=== PATIENT | male | born 1990 | race African-American/Black ===

== ENCOUNTER 2016-05-26 12:17 | Emergency (ER) | payer SELFPAY ==
[2016-05-26] MEDS ORDERED: IBUPROFEN 800 MG TABLET PO ONE (12:27)
--- NOTE | 2016-05-26 12:27 | ER Document Report ---
ED Medical Screen (RME) - General Stated Complaint: COUGH,CONGESTION, BACK PAIN Mode of Arrival: Ambulatory Information source: Patient Notes: Patient reports chest and back pain for the past week. Patient reports difficulty breathing. Patient reports mild cough. hx: None I have greeted and performed a rapid initial assessment of this patient. A comprehensive ED assessment and evaluation of the patient, analysis of test results and completion of the medical decision making process will be conducted by additional ED providers. - Related Data Allergies/Adverse Reactions: No Known Allergies Allergy (Unverified 05/26/16 12:26) Physical Exam - Respiratory Respiratory status: Other - Shallow respirations Chest status: Pain on movement, Pain with deep breathing Breath sounds: Other - Diminished breath sounds bilaterally
[2016-05-26 14:08] VITALS: BP 120/79
--- NOTE | 2016-05-26 14:10 | ER Document Report ---
HPI - HPI Patient complains to provider of: chest and back pain Pain Level: 4 Context: Patient is a 26 year old male p/w chest wall pain and back pain x2 weeks. Patient denies any injury, trauma. States that he only hurts wit movement. Denies associated SOB, dyspnea, wheezing, cough, fevers, palpitations, or relief with leaning forward. Intermittent nasla drainage, did ot receive a flu shot. Patient works at a [employer] with a lot of heavy lifting. taking APAP at home with minimal relief. denies PMH no PCP no allergies - DERM Skin Color: Normal Past Medical History - General Information source: Patient - Social History Smoking Status: Never Smoker Chew tobacco use (# tins/day): No Frequency of alcohol use: None Drug Abuse: None Family History: Reviewed & Not Pertinent Patient has suicidal ideation: No Patient has homicidal ideation: No Renal/ Medical History: Denies: Hx Peritoneal Dialysis Vertical Provider Document - CONSTITUTIONAL Agree With Documented VS: Yes Exam Limitations: No Limitations General Appearance: WD/WN, Mild Distress - INFECTION CONTROL TRAVEL OUTSIDE OF THE [place] IN LAST 30 DAYS: No - HEENT HEENT: Atraumatic, Normocephalic, PERRLA. negative: Pharyngeal Exudate, Pharyngeal Tenderness, Pharyngeal Erythema, Tympanic Membrane Red, Tympanic Membrane Bulging - NECK Neck: Normal Inspection. negative: Lymphadenopathy-Left, Lymphadenopathy-Right - RESPIRATORY Respiratory: Breath Sounds Normal, No Respiratory Distress, Other - Chest pain reproducible to palpation along bilateral rib spaces in the intercoastal areas.. negative: Rales, Rhonchi, Wheezing O2 Sat by Pulse Oximetry: 98 - CARDIOVASCULAR Cardiovascular: Regular Rate, Regular Rhythm, No Murmur. negative: Tachycardia Pulses: Normal: Radial Notes: No evidence of friction rub on auscultation - BACK Back: Normal Inspection Notes: pain to palpation of b/l trapezius, no tender to palpation of cervical or thoracic spinous processes. ABle to walk without difficulty - MUSCULOSKELETAL/EXTREMETIES Musculoskeletal/Extremeties: MAEW, FROM, Non-Tender, No Edema. negative: Eccymosis - NEURO Level of Consciousness: Awake, Alert, Appropriate Motor/Sensory: No Motor Deficit, No Sensory Deficit - DERM Integumentary: Warm, Dry, No Rash Course - Re-evaluation Re-evalutation: 05/26/16 15:04 Patient is a 26 year old male with h/o and PE revealing of muscle strain. patient works in a position requiring a lot of heavy lifitg. low index fopr suspicion of PTX given length of complaint and no evidence in CXR, Low index for suspicion of pericarditis or PE given patient pain reproducible on exam, VS stable, lack of physical exam findings. Will d/c patient home and [facility]. - Vital Signs Vital signs: Temp Pulse Resp BP Pulse Ox 98.2 F 86 20 128/64 H 98 05/26/16 12:25 05/26/16 12:25 05/26/16 12:25 05/26/16 12:25 05/26/16 12:25 - Laboratory Laboratory results interpreted by me: 05/26/16 15:05 Influenza negative - Diagnostic Test Radiology reviewed: Image reviewed, Reports reviewed Discharge - Discharge Clinical Impression: Muscle strain of chest wall Qualifiers: Encounter type: initial encounter Qualified Code(s): S29.011A - Strain of muscle and tendon of front wall of thorax, initial encounter Strain of trapezius muscle Qualifiers: Encounter type: initial encounter Laterality: unspecified laterality Qualified Code(s): S46.819A - Strain of other muscles, fascia and tendons at shoulder and upper arm level, unspecified arm, initial encounter Condition: Good Disposition: HOME, SELF-CARE Instructions: Muscle Strain ([facility]), Exercise Program for the Shoulder ([facility]), Chest Wall Pain ([facility]) Prescriptions: Meloxicam [Mobic 15 mg Tablet] 15 mg PO DAILY #30 tablet Forms: Parent Work Note, Return to Work [facility] [NO [facility]AL MD] - Follow up as needed
== END 2016-05-26 15:13 | disposition home or self-care (01) ==
LOC: ER 12:17
DX: S29.011A Strain of muscle and tendon of front wall of thorax, initial encounter (principal); S46.819A Strain of other muscles, fascia and tendons at shoulder and upper arm level, unspecified arm, initial encounter; R07.9 Chest pain, unspecified; M54.9 Dorsalgia, unspecified; X58.XXXA Exposure to other specified factors, initial encounter
CPT/HCPCS: 71020; 87804; 99283

== ENCOUNTER 2016-06-04 10:57 | Emergency (ER) | payer SELFPAY ==
--- NOTE | 2016-06-04 11:25 | ER Document Report ---
ED Medical Screen (RME) - General Stated Complaint: BODYACHES Notes: 26 yo male c/o flu like symptoms since yesterday. bodyaches and fever and cough. no flu shot TRAVEL OUTSIDE OF THE [place] IN LAST 30 DAYS: No - Related Data Allergies/Adverse Reactions: No Known Allergies Allergy (Verified 06/04/16 11:23) Past Medical History Renal/ Medical History: Denies: Hx Peritoneal Dialysis Physical Exam - Vital signs Vitals: Temp Pulse Resp BP Pulse Ox 99.3 F 71 14 132/66 H 97 06/04/16 11:00 06/04/16 11:00 06/04/16 11:00 06/04/16 11:00 06/04/16 11:00 Course - Vital Signs Vital signs: Temp Pulse Resp BP Pulse Ox 99.3 F 71 14 132/66 H 97 06/04/16 11:00 06/04/16 11:00 06/04/16 11:00 06/04/16 11:00 06/04/16 11:00
[2016-06-04] MEDS ORDERED: IBUPROFEN 800 MG TABLET PO ONE (12:39)
[2016-06-04] MEDS ORDERED: ONDANSETRON ODT 4 MG TAB (6 TAB/DSPK) PO PRN (12:39)
--- NOTE | 2016-06-04 12:40 | ER Document Report ---
HPI - HPI Patient complains to provider of: flu like symptoms Onset: Yesterday Quality of pain: Achy Severity: Moderate Pain Level: 4 Associated Symptoms: Body/muscle aches, Nonproductive cough, Nausea Exacerbated by: Denies Relieved by: Denies Similar symptoms previously: No Recently seen / treated by doctor: No - DERM Skin Color: Normal Past Medical History - General Information source: Patient - Social History Smoking Status: Current Some Day Smoker Cigarette use (# per day): Yes - occ Chew tobacco use (# tins/day): No Frequency of alcohol use: Occasional Drug Abuse: None Occupation: recycling Lives with: Family Family History: Reviewed & Not Pertinent Patient has suicidal ideation: No Patient has homicidal ideation: No - Medical History Medical History: Negative Renal/ Medical History: Denies: Hx Peritoneal Dialysis Surgical Hx: Negative - Immunizations Hx Diphtheria, Pertussis, Tetanus Vaccination: Yes Vertical Provider Document - CONSTITUTIONAL Agree With Documented VS: Yes Exam Limitations: No Limitations General Appearance: WD/WN, No Apparent Distress - INFECTION CONTROL TRAVEL OUTSIDE OF THE [place] IN LAST 30 DAYS: No - HEENT HEENT: Atraumatic, Normal ENT Exam, Normocephalic. negative: Conjuctival Injection, Pharyngeal Erythema, Tympanic Membrane Red - NECK Neck: Normal Inspection, Supple. negative: Lymphadenopathy-Left, Lymphadenopathy-Right - RESPIRATORY Respiratory: Breath Sounds Normal, No Respiratory Distress O2 Sat by Pulse Oximetry: 97 - GI/ABDOMEN Gastrointestinal: Abdomen Soft, Abdomen Non-Tender - BACK Back: Normal Inspection - MUSCULOSKELETAL/EXTREMETIES Musculoskeletal/Extremeties: MAEW, FROM - NEURO Level of Consciousness: Awake, Alert, Appropriate Motor/Sensory: No Motor Deficit - DERM Integumentary: Warm, Dry, No Rash Course - Re-evaluation Re-evalutation: 06/04/16 12:42 Patient instructed on flu symptoms. Patient instructed on good handwashing ibuprofen and antinausea medicine. Importance of fluids. Patient was also instructed to return emergency department for any trouble breathing concerns. - Vital Signs Vital signs: Temp Pulse Resp BP Pulse Ox 99.3 F 71 14 132/66 H 97 06/04/16 11:00 06/04/16 11:00 06/04/16 11:00 06/04/16 11:00 06/04/16 11:00 Discharge - Discharge Clinical Impression: Flu-like symptoms, elevated blood pressure Condition: Stable Disposition: HOME, SELF-CARE Instructions: Influenza ([facility]), Use of Pnhb-Ayr-Whzficp Ibuprofen ([facility]), Antinausea Medication ([facility]) Additional Instructions: *You have been evaluated for flu like symptoms today, cough *Increase fluid intake as discussed *Take medication as prescribed *Monitor your temperature, take Tylenol or motrin as indicated *Follow up with a primary care provider within one week for recheck *Good handwashing *Monitor your blood pressure. Your blood pressure was elevated today. This may be because you were anxious, in pain or because you need medication. It is important to follow up with your primary care provider for full evaluation. *Return to ED for worsening condition, changes, needs Forms: Return to Work, Elevated Blood Pressure
[2016-06-04 13:01] VITALS: BP 134/69
== END 2016-06-04 13:00 | disposition home or self-care (01) ==
LOC: ER 10:57
DX: M79.1 Myalgia (principal); R05 Cough; R11.0 Nausea; F17.210 Nicotine dependence, cigarettes, uncomplicated; R03.0 Elevated blood-pressure reading, without diagnosis of hypertension
CPT/HCPCS: 99283

== ENCOUNTER 2016-06-16 18:29 | Emergency (ER) | payer SELFPAY ==
[2016-06-16] MEDS ORDERED: ONDANSETRON 4 MG TAB.RAPDIS SL ONE (19:01)
[2016-06-16] MEDS ORDERED: KETOROLAC TROMETHAMINE 60 MG/2 ML SDV IM ONE (19:01)
[2016-06-16] MEDS ORDERED: BENZONATATE 100 MG CAPSULE PO ONE (19:01)
--- NOTE | 2016-06-16 19:04 | ER Document Report ---
ED Flu Like - General Chief Complaint: Fever Stated Complaint: FEVER/BODY ACHES Time seen by provider: 19:02 Mode of Arrival: Ambulatory Information source: Patient TRAVEL OUTSIDE OF THE [place] IN LAST 30 DAYS: No - HPI Patient complains to provider of: fever, body aches, headache, nausea, vomiting , diarrhea Onset: Last week Timing/Duration: Persistent Quality of pain: Achy Severity: Moderate Pain Level: 3 Associated symptoms: Body/muscle aches, Chills, Productive cough, Diarrhea, Fever, Nausea, Vomiting Similar symptoms previously: Yes Recently seen / treated by doctor: No Notes: Patient is a 26-year-old male with medical history presents to the emergency room with flulike symptoms including cough, cold, congestion, cough is productive of yellow phlegm, fever, body aches, headache, nausea, vomiting, diarrhea, symptoms have been persistent for the past 2 weeks approximately, patient did not receive a flu vaccination this season - Related Data Allergies/Adverse Reactions: No Known Allergies Allergy (Verified 06/16/16 19:01) Past Medical History - General Information source: Patient - Social History Smoking Status: Current Every Day Smoker Family History: Reviewed & Not Pertinent Renal/ Medical History: Denies: Hx Peritoneal Dialysis - Immunizations Hx Diphtheria, Pertussis, Tetanus Vaccination: Yes Review of Systems - Review of Systems Constitutional: See HPI EENT: See HPI Cardiovascular: No symptoms reported Respiratory: See HPI Gastrointestinal: See HPI Genitourinary: No symptoms reported Male Genitourinary: No symptoms reported Musculoskeletal: See HPI Skin: No symptoms reported Hematologic/Lymphatic: No symptoms reported Neurological/Psychological: See HPI -: Yes All other systems reviewed and negative Physical Exam - Vital signs Vitals: Temp Pulse Resp BP Pulse Ox 98.2 F 75 16 137/65 H 98 06/16/16 19:00 06/16/16 19:00 06/16/16 19:00 06/16/16 19:00 06/16/16 19:00 Interpretation: Normal - General General appearance: Appears well, Alert - HEENT Head: Normocephalic, Atraumatic Eyes: Normal Pupils: PERRL Nasal: Clear rhinorrhea Mouth/Lips: Normal Pharynx: Erythema. No: Exudate Neck: Normal - Respiratory Respiratory status: No respiratory distress Chest status: Nontender Breath sounds: Normal Chest palpation: Normal - Cardiovascular Rhythm: Regular Heart sounds: Normal auscultation Murmur: No - Abdominal Inspection: Normal Distension: No distension Bowel sounds: Normal Tenderness: Nontender Organomegaly: No organomegaly - Back Back: Normal, Nontender - Extremities General upper extremity: Normal inspection, Nontender, Normal color, Normal ROM , Normal temperature General lower extremity: Normal inspection, Nontender, Normal color, Normal ROM , Normal temperature, Normal weight bearing. No: Greg's sign - Neurological Neuro grossly intact: Yes Cognition: Normal Orientation: AAOx4 [place] Coma Scale Eye Opening: Spontaneous [place] Coma Scale Verbal: Oriented Bernard Coma Scale Motor: Obeys Commands Bernard Coma Scale Total: 15 Speech: Normal Motor strength normal: LUE, RUE, LLE, RLE Sensory: Normal - Psychological Associated symptoms: Normal affect, Normal mood - Skin Skin Temperature: Warm Skin Moisture: Dry Skin Color: Normal Course - Re-evaluation Re-evalutation: 06/16/16 19:50 Lab and imaging findings were discussed with patient at bedside which are consistent with pneumonia, patient will be started on antibiotics and advised to follow-up with a primary care provider in 2-3 days or return if symptoms worsen, patient acknowledges understanding and agreement with this plan - Vital Signs Vital signs: Temp Pulse Resp BP Pulse Ox 98.2 F 75 16 137/65 H 98 06/16/16 19:00 06/16/16 19:00 06/16/16 19:00 06/16/16 19:00 06/16/16 19:00 - Diagnostic Test Radiology reviewed: Image reviewed, Reports reviewed Discharge - Discharge Clinical Impression: Pneumonia Qualifiers: Pneumonia type: due to unspecified organism Laterality: right Lung location: lower lobe of lung Qualified Code(s): J18.1 - Lobar pneumonia, unspecified organism Condition: Stable Disposition: HOME, SELF-CARE Instructions: Acetaminophen, Fever ([facility]), Pneumonia ([facility]), Ibuprofen (General) ([facility]) Additional Instructions: Follow up with your primary care provider in one to 2 days. Return to the emergency room immediately if symptoms worsen or any additional concerns. Prescriptions: Azithromycin [Zithromax 250 mg Tablet] 250 mg PO ASDIR PRN #4 tablet PRN Reason: Forms: Smoking Cessation Education, Return to Work
[2016-06-16 19:07] VITALS: BP 137/65
[2016-06-16] MEDS ORDERED: AZITHROMYCIN 250 MG TABLET PO ONE (19:50)
[2016-06-16] MEDS ORDERED: ONDANSETRON ODT 4 MG TAB (6 TAB/DSPK) PO PRN (19:52)
[2016-06-16] MEDS ORDERED: HYDROCODONE/ACETAMINOPHEN 5-325 MG 6 TAB/DSPK PO PRN (19:52)
== END 2016-06-16 20:00 | disposition home or self-care (01) ==
LOC: ER 18:29
DX: J18.1 Lobar pneumonia, unspecified organism (principal); R50.9 Fever, unspecified; R52 Pain, unspecified; R51 Headache; R11.2 Nausea with vomiting, unspecified; R19.7 Diarrhea, unspecified; F17.210 Nicotine dependence, cigarettes, uncomplicated
CPT/HCPCS: 99283; 96372; 87070; 87880; 87077; 87804; 71020; J1885; S0119

== ENCOUNTER 2016-11-21 11:36 | Emergency (ER) | payer SELFPAY ==
[2016-11-21 11:42] VITALS: BP 125/72
[2016-11-21] MEDS ORDERED: DEXAMETHASONE 4 MG TABLET PO ONE (12:09)
[2016-11-21] MEDS ORDERED: IBUPROFEN 800 MG TABLET PO ONE (12:09)
[2016-11-21] MEDS ORDERED: LIDOCAINE 2% VISCOUS SOLN 20 ML UDCUP PO ONE (12:10)
[2016-11-21] MEDS ORDERED: PENICILLIN G BENZATHINE 1.2 MILLION UNIT/2 ML DISP.SYRIN IM ONE (12:10)
--- NOTE | 2016-11-21 12:12 | ER Document Report ---
HPI - HPI Patient complains to provider of: sore throat Onset: Other - 2 days Onset/Duration: Persistent Quality of pain: Achy Pain Level: 3 Context: Presents complaining of sore throat, fever for the past 2 days. Patient does report recent sick household contacts Associated Symptoms: Body/muscle aches, Fever, Sore throat. denies: Nonproductive cough, Productive cough Exacerbated by: Denies Relieved by: Denies Similar symptoms previously: Yes Recently seen / treated by doctor: No - ROS ROS below otherwise negative: Yes Systems Reviewed and Negative: Yes All other systems reviewed and negative - CONSTITUTIONAL Constitutional: REPORTS: Fever, Chills - EENT EENT: REPORTS: Sore Throat - RESPIRATORY Respiratory: DENIES: Coughing - GASTROINTESTINAL Gastrointestinal: DENIES: Nausea, Patient vomiting - MUSCULOSKELETAL Notes: bodyaches - DERM Skin Color: Normal Skin Problems: None Past Medical History - General Information source: Patient - Social History Smoking Status: Never Smoker Frequency of alcohol use: None Drug Abuse: None Occupation: none Lives with: Spouse/Significant other Family History: Reviewed & Not Pertinent - Medical History Medical History: Negative Renal/ Medical History: Denies: Hx Peritoneal Dialysis Surgical Hx: Negative - Immunizations Hx Diphtheria, Pertussis, Tetanus Vaccination: Yes Vertical Provider Document - CONSTITUTIONAL Agree With Documented VS: Yes Exam Limitations: No Limitations General Appearance: WD/WN, No Apparent Distress - INFECTION CONTROL TRAVEL OUTSIDE OF THE [place] IN LAST 30 DAYS: No - HEENT HEENT: Atraumatic, Normocephalic, Pharyngeal Exudate, Pharyngeal Tenderness, Pharyngeal Erythema - NECK Neck: Lymphadenopathy-Left, Lymphadenopathy-Right - RESPIRATORY Respiratory: Breath Sounds Normal, No Respiratory Distress, Chest Non-Tender O2 Sat by Pulse Oximetry: 98 - CARDIOVASCULAR Cardiovascular: Regular Rate, Regular Rhythm, No Murmur - MUSCULOSKELETAL/EXTREMETIES Musculoskeletal/Extremeties: MAEW - NEURO Level of Consciousness: Awake, Alert, Appropriate Motor/Sensory: No Motor Deficit - DERM Integumentary: Warm, Dry, No Rash Course - Vital Signs Vital signs: Temp Pulse Resp BP Pulse Ox 99.1 F 94 16 125/72 98 11/21/16 11:41 11/21/16 11:41 11/21/16 11:41 11/21/16 11:41 11/21/16 11:41 Discharge - Discharge Clinical Impression: Tonsillitis Condition: Stable Disposition: HOME, SELF-CARE Instructions: Sore Throat ([facility]), Tonsillitis ([facility]), Use of Fmdk-Xgy-Xidlmic Ibuprofen ([facility]), Corticosteroid Medication ([facility]) Additional Instructions: Return immediately for any new or worsening symptoms Followup with your primary care provider, call tomorrow to make a followup appointment Prescriptions: Naproxen [Naprosyn 250 Nmg Tablet] 1 tab PO BID #14 tablet Referrals: [facility] [Provider Group] - Follow up as needed
== END 2016-11-21 13:01 | disposition home or self-care (01) ==
LOC: ER 11:36
DX: J03.90 Acute tonsillitis, unspecified (principal); R50.9 Fever, unspecified; M79.1 Myalgia; R59.0 Localized enlarged lymph nodes
CPT/HCPCS: 99283; 96372; 87880; J3490; J0561

== ENCOUNTER 2017-01-15 11:32 | Emergency (ER) | payer SELFPAY ==
--- NOTE | 2017-01-15 12:03 | ER Document Report ---
ED Medical Screen (RME) - General Chief Complaint: Abdominal Pain Stated Complaint: ABDOMINAL PAIN Time Seen by Provider: 01/15/17 12:02 Notes: pt with two days of LLQ abdominal pain/nausea/diarrhea. TRAVEL OUTSIDE OF THE [place] IN LAST 30 DAYS: No - Related Data Allergies/Adverse Reactions: No Known Allergies Allergy (Verified 01/15/17 11:36) Past Medical History - Social History Chew tobacco use (# tins/day): No Frequency of alcohol use: Occasional Drug Abuse: None Renal/ Medical History: Denies: Hx Peritoneal Dialysis Surgical Hx: Negative - Immunizations Hx Diphtheria, Pertussis, Tetanus Vaccination: No Physical Exam - Vital signs Vitals: Temp Pulse Resp BP Pulse Ox 98.6 F 89 16 127/79 H 99 01/15/17 11:37 01/15/17 11:37 01/15/17 11:37 01/15/17 11:37 01/15/17 11:37 Course - Vital Signs Vital signs: Temp Pulse Resp BP Pulse Ox 98.6 F 89 16 127/79 H 99 01/15/17 11:37 01/15/17 11:37 01/15/17 11:37 01/15/17 11:37 01/15/17 11:37
[2017-01-15 12:33] LABS: ABSOLUTE EOSINOPHILS # (AUTO) 0.1 10^3/uL (0.0-0.6); ABSOLUTE LYMPHOCYTES (AUTO) 1.9 10^3/uL (0.5-4.7); ABSOLUTE MONOCYTES (AUTO) 0.5 10^3/uL (0.1-1.4); ABSOLUTE NEUT (AUTO) 2.7 10^3/uL (1.7-8.2); BASOPHILS % (AUTO) 0.7 % (0-2); EOSINOPHILS % (AUTO) 1.2 % (0-6); HEMATOCRIT 42.2 % (37.9-51.0); HEMOGLOBIN 14.5 g/dL (13.5-17.0); HGB HCT DIFFERENCE 1.3; LYMPHOCYTES % (AUTO) 35.6 % (13-45); MEAN CORPUSCULAR HEMOGLOBIN 31.7 pg (27.0-33.4); MEAN CORPUSCULAR HGB CONC 34.3 g/dL (32.0-36.0); MEAN CORPUSCULAR VOLUME 93 fl (80-97); RED BLOOD COUNT 4.57 10^6/uL (4.35-5.55); RED CELL DISTRIBUTION WIDTH 13.7 % (11.5-14.0); SEGMENTED NEUTROPHILS % (AUTO) 52.5 % (42-78); WHITE BLOOD COUNT 5.2 10^3/uL (4.0-10.5)
[2017-01-15 12:38] LABS: APPEARANCE,URINE CLEAR; BILIRUBIN,URINE NEGATIVE (NEGATIVE); GLUCOSE, URINE NEGATIVE (NEGATIVE); KETONES,URINE NEGATIVE (NEGATIVE); LEUKOCYTE ESTERASE,URINE NEGATIVE (NEGATIVE); NITRITE,URINE NEGATIVE (NEGATIVE); PROTEIN,URINE NEGATIVE (NEGATIVE); URINE SPECIFIC GRAVITY 1.003; UROBILINOGEN,URINE NEGATIVE mg/dL (<2.0)
[2017-01-15] MEDS ORDERED: ONDANSETRON 4 MG TAB.RAPDIS SL ONE (12:51)
--- NOTE | 2017-01-15 12:54 | ER Document Report ---
ED GI/ - General Chief Complaint: Abdominal Pain Stated Complaint: ABDOMINAL PAIN Time Seen by Provider: 01/15/17 12:02 Mode of Arrival: Ambulatory Information source: Patient TRAVEL OUTSIDE OF THE [place] IN LAST 30 DAYS: No - HPI Patient complains to provider of: Abdominal pain, Diarrhea, Vomiting Onset: Yesterday Timing/Duration: Persistent Quality of pain: Achy, Cramping Severity at maximum: Moderate Severity in ED: Moderate Pain Level: 3 Location: LLQ Associated symptoms: Diarrhea, Nausea, Vomiting Exacerbated by: Denies Relieved by: Denies Similar symptoms previously: No Recently seen / treated by doctor: No Notes: 01/15/17 12:52 Patient is a 26-year-old healthy male who presents to the emergency room today complaining of crampy lower abdominal pain with nausea vomiting and diarrhea, states he started with diarrhea yesterday thinking that he had a stomach bug, today he ate a dum[employer] egg and cheese sandwich at [employer] symptoms started shortly thereafter, he had 2 episodes of vomiting with crampy pain in the left lower quadrant of his abdomen, denies any blood in his vomit or stools, no fevers, no urinary symptoms, no history of similar symptoms previously, no sick contacts - Related Data Allergies/Adverse Reactions: No Known Allergies Allergy (Verified 01/15/17 11:36) Past Medical History - General Information source: Patient - Social History Smoking Status: Former Smoker Chew tobacco use (# tins/day): No Frequency of alcohol use: Occasional Drug Abuse: Marijuana Family History: Reviewed & Not Pertinent Renal/ Medical History: Denies: Hx Peritoneal Dialysis Surgical Hx: Negative - Immunizations Hx Diphtheria, Pertussis, Tetanus Vaccination: No Review of Systems - Review of Systems Constitutional: No symptoms reported EENT: No symptoms reported Cardiovascular: No symptoms reported Respiratory: No symptoms reported Gastrointestinal: See HPI Genitourinary: No symptoms reported Male Genitourinary: No symptoms reported Musculoskeletal: No symptoms reported Skin: No symptoms reported Hematologic/Lymphatic: No symptoms reported Neurological/Psychological: No symptoms reported -: Yes All other systems reviewed and negative Physical Exam - Vital signs Vitals: Temp Pulse Resp BP Pulse Ox 98.6 F 89 16 127/79 H 99 01/15/17 11:37 01/15/17 11:37 01/15/17 11:37 01/15/17 11:37 01/15/17 11:37 Interpretation: Normal - General General appearance: Appears well, Alert - HEENT Head: Normocephalic, Atraumatic Eyes: Normal Pupils: PERRL - Respiratory Respiratory status: No respiratory distress Chest status: Nontender Breath sounds: Normal Chest palpation: Normal - Cardiovascular Rhythm: Regular Heart sounds: Normal auscultation Murmur: No - Abdominal Inspection: Normal Distension: No distension Bowel sounds: Normal Tenderness: Tender - Mild left lower quadrant tenderness Organomegaly: No organomegaly - Back Back: Normal, Nontender - Extremities General upper extremity: Normal inspection, Nontender, Normal color, Normal ROM , Normal temperature General lower extremity: Normal inspection, Nontender, Normal color, Normal ROM , Normal temperature, Normal weight bearing. No: Greg's sign - Neurological Neuro grossly intact: Yes Cognition: Normal Orientation: AAOx4 [place] Coma Scale Eye Opening: Spontaneous [place] Coma Scale Verbal: Oriented [place] Coma Scale Motor: Obeys Commands [place] Coma Scale Total: 15 Speech: Normal Motor strength normal: LUE, RUE, LLE, RLE Sensory: Normal - Psychological Associated symptoms: Normal affect, Normal mood - Skin Skin Temperature: Warm Skin Moisture: Dry Skin Color: Normal Course - Re-evaluation Re-evalutation: 01/15/17 13:42 Patient resting comfortably on stretcher, no vomiting while in the emergency room, reports feeling much better, tolerating p.o. intake, labs are unremarkable and were discussed with patient at bedside, symptoms likely related to viral gastroenteritis, he will be discharged with prescription for antiemetics and instructed to follow-up or return if symptoms worsen, patient acknowledges understanding and agreement with this plan - Vital Signs Vital signs: Temp Pulse Resp BP Pulse Ox 98.6 F 89 16 127/79 H 99 01/15/17 11:37 01/15/17 11:37 01/15/17 11:37 01/15/17 11:37 01/15/17 11:37 - Laboratory Result Diagrams: 01/15/17 12:20 01/15/17 12:20 Laboratory results interpreted by me: 01/15/17 12:20 Urine Blood SMALL H Discharge - Discharge Clinical Impression: Vomiting and diarrhea Condition: Stable Disposition: HOME, SELF-CARE Instructions: Abdominal Pain ([facility]), Nausea or Vomiting, Nonspecific ([facility]), Diarrhea, Nonspecific ([facility]) Additional Instructions: Follow up with your primary care provider in one to 2 days. Return to the emergency room immediately if symptoms worsen or any additional concerns. Prescriptions: Ondansetron [Zofran Odt 4 mg Tablet] 1 - 2 tab PO Q4H #10 tab.rapdis Forms: Return to Work
[2017-01-15 12:57] LABS: ALANINE AMINOTRANSFERASE 27 U/L (21-72); ALBUMIN 4.4 g/dL (3.5-5.0); ALKALINE PHOSPHATASE 108 U/L (38-126); ANION GAP 10 (5-19); ASPARTATE AMINO TRANSFERASE 23 U/L (17-59); BILIRUBIN,DIRECT 0.3 mg/dL (0.0-0.4); BILIRUBIN,TOTAL 0.4 mg/dL (0.2-1.3); BLOOD UREA NITROGEN 10 mg/dL (7-20); CALCIUM 9.8 mg/dL (8.4-10.2); CARBON DIOXIDE 28 mmol/L (22-30); CHLORIDE 104 mmol/L (98-107); CREATININE RESULT 0.92 mg/dL (0.52-1.25); GLUCOSE 82 mg/dL (75-110); POTASSIUM 4.4 mmol/L (3.6-5.0); SODIUM 141.6 mmol/L (137-145); TOTAL PROTEIN 7.6 g/dL (6.3-8.2)
[2017-01-15 14:15] VITALS: BP 123/76
== END 2017-01-15 14:15 | disposition home or self-care (01) ==
LOC: ER 11:32
DX: R10.9 Unspecified abdominal pain (principal); R19.7 Diarrhea, unspecified; R11.10 Vomiting, unspecified; R10.30 Lower abdominal pain, unspecified
CPT/HCPCS: 99284; 36415; 85025; 80053; 81001; S0119

== ENCOUNTER 2017-09-18 16:50 | Emergency (ER) | payer OTHER ==
[2017-09-18 16:57] VITALS: BP 136/83
[2017-09-18] MEDS ORDERED: OXYCODONE HCL IR 5 MG TABLET PO ONE (17:09)
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
[2017-09-18] MEDS ORDERED: IBUPROFEN 800 MG TABLET PO ONE (18:35)
[2017-09-18] MEDS ORDERED: LIDOCAINE 5% (700 MG) TRANSDERMAL ADH..PATCH TP ONE (18:35)
== END 2017-09-18 18:48 | disposition home or self-care (01) ==
LOC: ER 16:50
DX: S16.1XXA Strain of muscle, fascia and tendon at neck level, initial encounter (principal); S39.012A Strain of muscle, fascia and tendon of lower back, initial encounter; M54.2 Cervicalgia; V87.7XXA Person injured in collision between other specified motor vehicles (traffic), initial encounter; F17.200 Nicotine dependence, unspecified, uncomplicated
CPT/HCPCS: 72110; 72125; 99284

== ENCOUNTER 2018-05-03 15:10 | Emergency (ER) | payer OTHER ==
[2018-05-03] MEDS ORDERED: ONDANSETRON 4 MG TAB.RAPDIS PO ONE (16:40)
--- NOTE | 2018-05-03 16:41 | ER Document Report ---
ED Medical Screen (RME) - General Chief Complaint: Headache Stated Complaint: HEADACHE, ABDOMINAL PAIN, VOMITING Time Seen by Provider: 05/03/18 16:33 Notes: 27-year-old male patient reports onset of nausea and vomiting on Thursday with some intermittent abdominal cramping. He reports developing a headache this morning. States he has vomited 2-3 times per day. He is able to tolerate some fluids, but not food. There is been no fever, no diarrhea and he has not had a bowel movement since this started. I have greeted and performed a rapid initial assessment of this patient. A comprehensive ED assessment and evaluation of the patient, analysis of test results and completion of the medical decision making process will be conducted by additional ED providers. TRAVEL OUTSIDE OF THE [place] IN LAST 30 DAYS: No - Related Data Allergies/Adverse Reactions: No Known Allergies Allergy (Verified 09/18/17 16:51) Past Medical History - Social History Chew tobacco use (# tins/day): No Frequency of alcohol use: Occasional Drug Abuse: None Renal/ Medical History: Denies: Hx Peritoneal Dialysis - Immunizations Hx Diphtheria, Pertussis, Tetanus Vaccination: No Physical Exam - Vital signs Vitals: Temp Pulse Resp BP Pulse Ox 98.5 F 76 16 120/80 97 05/03/18 15:21 05/03/18 15:21 05/03/18 15:21 05/03/18 15:21 05/03/18 15:21 Course - Vital Signs Vital signs: Temp Pulse Resp BP Pulse Ox 98.5 F 76 16 120/80 97 05/03/18 15:21 05/03/18 15:21 05/03/18 16:19 05/03/18 15:21 05/03/18 15:21
[2018-05-03 17:19] LABS: ABSOLUTE EOSINOPHILS # (AUTO) 0.1 10^3/uL (0.0-0.6); ABSOLUTE LYMPHOCYTES (AUTO) 2.4 10^3/uL (0.5-4.7); ABSOLUTE MONOCYTES (AUTO) 0.5 10^3/uL (0.1-1.4); ABSOLUTE NEUT (AUTO) 2.6 10^3/uL (1.7-8.2); BASOPHILS % (AUTO) 0.8 % (0-2); EOSINOPHILS % (AUTO) 1.8 % (0-6); HEMATOCRIT 42.3 % (37.9-51.0); HEMOGLOBIN 14.4 g/dL (13.5-17.0); LYMPHOCYTES % (AUTO) 43.3 % (13-45); MEAN CORPUSCULAR HEMOGLOBIN 31.8 pg (27.0-33.4); MEAN CORPUSCULAR HGB CONC 34.1 g/dL (32.0-36.0); MEAN CORPUSCULAR VOLUME 93 fl (80-97); MONOCYTES % (AUTO) 8.4 % (3-13); PLATELET COUNT 196 10^3/uL (150-450); RED BLOOD COUNT 4.55 10^6/uL (4.35-5.55); RED CELL DISTRIBUTION WIDTH 13.6 % (11.5-14.0); SEGMENTED NEUTROPHILS % (AUTO) 45.7 % (42-78); TOTAL CELLS COUNTED % (AUTO) 100 %; WHITE BLOOD COUNT 5.6 10^3/uL (4.0-10.5)
[2018-05-03 17:32] LABS: APPEARANCE,URINE SLIGHTLY-CLOUDY; BILIRUBIN,URINE NEGATIVE (NEGATIVE); COLOR,URINE YELLOW; GLUCOSE, URINE NEGATIVE (NEGATIVE); KETONES,URINE NEGATIVE (NEGATIVE); LEUKOCYTE ESTERASE,URINE NEGATIVE (NEGATIVE); NITRITE,URINE NEGATIVE (NEGATIVE); PROTEIN,URINE NEGATIVE (NEGATIVE); URINE SPECIFIC GRAVITY 1.025
[2018-05-03 17:38] LABS: ALANINE AMINOTRANSFERASE 33 U/L (21-72); ALBUMIN 4.2 g/dL (3.5-5.0); ALKALINE PHOSPHATASE 82 U/L (38-126); ANION GAP 6 (5-19); ASPARTATE AMINO TRANSFERASE 23 U/L (17-59); BILIRUBIN,DIRECT 0.1 mg/dL (0.0-0.4); BILIRUBIN,TOTAL 0.8 mg/dL (0.2-1.3); BLOOD UREA NITROGEN 13 mg/dL (7-20); CALCIUM 9.5 mg/dL (8.4-10.2); CARBON DIOXIDE 28 mmol/L (22-30); CHLORIDE 105 mmol/L (98-107); GLUCOSE 70 mg/dL (75-110); POTASSIUM 4.4 mmol/L (3.6-5.0); SODIUM 139.4 mmol/L (137-145); TOTAL PROTEIN 7.1 g/dL (6.3-8.2)
[2018-05-03] MEDS ORDERED: PROMETHAZINE HCL 25 MG TABLET PO ONE (18:05)
--- NOTE | 2018-05-03 18:05 | ER Document Report ---
ED General - General Chief Complaint: Headache Stated Complaint: HEADACHE, ABDOMINAL PAIN, VOMITING Time Seen by Provider: 05/03/18 16:33 Notes: Patient is a 27-year-old male that presents to the emergency department for chief complaint of nausea, vomiting, diarrhea and headache. Patient states his been having the symptoms for a few days now, and are just not getting better, he states this started on Thursday, he said generalized body aches as well. He said about 5 episodes of vomiting since Thursday. He said generalized abdominal cramping, but denies any specific or localized abdominal pain. No sick contacts that he is aware of. Denies any undercooked or raw foods, or abnormal foods recently. He reports he is otherwise healthy, denies any other complaints at this time, denies any any fevers, chills, night sweats, chest pain or shortness of breath or difficulty breathing. Past Medical History: Denies chronic medical conditions Past Surgical History: Denies surgical history Social History: Admits to occasional alcohol use, denies tobacco or illicit drug use. Family History: Reviewed and noncontributory for presenting illness Allergies: Reviewed, see documented allergy list. REVIEW OF SYSTEMS: Other than noted above, the 12 point review of systems was reviewed with the patient and were negative, all pertinent findings are included in the HPI. PHYSICAL EXAMINATION: Vital signs reviewed, nursing noted reviewed. GENERAL: Well-appearing, well-nourished and in no acute distress. HEAD: Atraumatic, normocephalic. EYES: Eyes appear normal, extraocular movements intact, sclera anicteric, conjunctiva are normal. ENT: nares patent, oropharynx clear without exudates. Moist mucous membranes. Sinuses are nontender with palpation NECK: Normal range of motion, supple without lymphadenopathy LUNGS: Breath sounds clear to auscultation bilaterally and equal. No wheezes rales or rhonchi. HEART: Regular rate and rhythm without murmurs ABDOMEN: Soft, mild abdominal discomfort with palpation, no focal tenderness, normoactive bowel sounds. No rebound, guarding, or rigidity. No masses appreciated. EXTREMITIES: Nontender, good range of motion, no pitting or edema. NEUROLOGICAL: No focal neurological deficits. Moves all extremities spontaneously Motor and sensory grossly intact on exam. PSYCH: Normal mood, normal affect. SKIN: Warm, Dry, normal turgor, no rashes or lesions noted on exposed skin TRAVEL OUTSIDE OF THE [place] IN LAST 30 DAYS: No - Related Data Allergies/Adverse Reactions: No Known Allergies Allergy (Verified 09/18/17 16:51) Past Medical History - Social History Smoking Status: Current Some Day Smoker Chew tobacco use (# tins/day): No Frequency of alcohol use: Occasional Drug Abuse: None Family History: Reviewed & Not Pertinent Patient has suicidal ideation: No Patient has homicidal ideation: No Renal/ Medical History: Denies: Hx Peritoneal Dialysis - Immunizations Hx Diphtheria, Pertussis, Tetanus Vaccination: No Physical Exam - Vital signs Vitals: Temp Pulse Resp BP Pulse Ox 98.5 F 76 16 120/80 97 05/03/18 15:21 05/03/18 15:21 05/03/18 15:21 05/03/18 15:21 05/03/18 15:21 Course - Re-evaluation Re-evalutation: Patient seen and examined vital signs reviewed. Laboratory data and imaging were ordered as appropriate for the patient's presenting symptoms and complaint, with consideration of any critical or life threatening conditions that may be associated with their obtained history and exam as noted above. Patient was treated with Zofran initially, but did not help his nausea significantly, therefore I ordered p.o. Phenergan, which did help his symptoms. Results were reviewed when available and demonstrated unremarkable blood work and urinalysis The patient was re-evaluated and was improved Evaluation was most consistent with nausea, vomiting diarrhea, mild headache, symptoms most consistent with a gastroenteritis, or viral illness, however advised that the patient if his symptoms worsen that he needs to return to the emergency department. He is given a prescription for Phenergan to take at home. Results were discussed with the patient at this point, after careful consideration I feel that that patient can be discharged from the emergency department, the patient was educated treatments and reasons to return to the emergency department based on their presumed diagnosis as noted above, they were advised to followup with a primary care physician in 2-3 days. Patient was agreeable to plan of care. *Note is created using voice recognition software and may contain spelling, syntax or grammatical errors. Laboratory 05/03/18 05/03/18 05/03/18 16:56 16:56 16:56 WBC 5.6 RBC 4.55 Hgb 14.4 Hct 42.3 MCV 93 MCH 31.8 MCHC 34.1 RDW 13.6 Plt Count 196 Seg Neutrophils % 45.7 Lymphocytes % 43.3 Monocytes % 8.4 Eosinophils % 1.8 Basophils % 0.8 Absolute Neutrophils 2.6 Absolute Lymphocytes 2.4 Absolute Monocytes 0.5 Absolute Eosinophils 0.1 Absolute Basophils 0.0 Sodium 139.4 Potassium 4.4 Chloride 105 Carbon Dioxide 28 Anion Gap 6 BUN 13 Creatinine 0.98 Est GFR ( Amer) > 60 Est GFR (Non-Af Amer) > 60 Glucose 70 L Calcium 9.5 Total Bilirubin 0.8 Direct Bilirubin 0.1 Neonat Total Bilirubin Not Reportable Neonat Direct Bilirubin Not Reportable Neonat Indirect Bili Not Reportable AST 23 ALT 33 Alkaline Phosphatase 82 Total Protein 7.1 Albumin 4.2 Lipase Urine Color YELLOW Urine Appearance SLIGHTLY-CLOUDY Urine pH 6.0 Ur Specific [place] 1.025 Urine Protein NEGATIVE Urine Glucose (UA) NEGATIVE Urine Ketones NEGATIVE Urine Blood NEGATIVE Urine Nitrite NEGATIVE Urine Bilirubin NEGATIVE Urine Urobilinogen 4.0 H Ur Leukocyte Esterase NEGATIVE Urine WBC (Auto) 1 Urine RBC (Auto) 1 Squamous Epi Cells Auto <1 Urine Mucus (Auto) OCC Urine Ascorbic Acid NEGATIVE 05/03/18 16:56 WBC RBC Hgb Hct MCV MCH MCHC RDW Plt Count Seg Neutrophils % Lymphocytes % Monocytes % Eosinophils % Basophils % Absolute Neutrophils Absolute Lymphocytes Absolute Monocytes Absolute Eosinophils Absolute Basophils Sodium Potassium Chloride Carbon Dioxide Anion Gap BUN Creatinine Est GFR ( Amer) Est GFR (Non-Af Amer) Glucose Calcium Total Bilirubin Direct Bilirubin Neonat Total Bilirubin Neonat Direct Bilirubin Neonat Indirect Bili AST ALT Alkaline Phosphatase Total Protein Albumin Lipase 64.4 Urine Color Urine Appearance Urine pH Ur Specific [place] Urine Protein Urine Glucose (UA) Urine Ketones Urine Blood Urine Nitrite Urine Bilirubin Urine Urobilinogen Ur Leukocyte Esterase Urine WBC (Auto) Urine RBC (Auto) Squamous Epi Cells Auto Urine Mucus (Auto) Urine Ascorbic Acid - Vital Signs Vital signs: Temp Pulse Resp BP Pulse Ox 98.2 F 69 16 124/73 97 05/03/18 19:15 05/03/18 19:15 05/03/18 19:15 05/03/18 19:15 05/03/18 19:15 - Laboratory Result Diagrams: 05/03/18 16:56 05/03/18 16:56 Laboratory results interpreted by me: 05/03/18 05/03/18 16:56 16:56 Glucose 70 L Urine Urobilinogen 4.0 H Discharge - Discharge Clinical Impression: Nausea and vomiting Qualifiers: Vomiting type: unspecified Vomiting Intractability: non-intractable Qualified Code(s): R11.2 - Nausea with vomiting, unspecified Diarrhea Qualifiers: Diarrhea type: unspecified type Qualified Code(s): R19.7 - Diarrhea, unspecified Condition: Stable Disposition: HOME, SELF-CARE Instructions: Vomiting ([facility]) Additional Instructions: Please follow-up with your primary care physician, take the antinausea medication as directed, please get this filled at the pharmacy, you can go to the [facility] it is open until midnight. If you have any further concerns or symptoms are not improving over the next few days, do not hesitate to return to the emergency department. Prescriptions: Promethazine HCl [Phenergan 25 mg Tablet] 1 tab PO Q6H PRN #15 tablet PRN Reason: NAUSEA/VOMITING Forms: Return to Work Referrals: XAVIER VALDES MD [ACTIVE STAFF] - Follow up in 3-5 days (OR YOUR PRIMARY CARE. )
[2018-05-03 19:19] VITALS: BP 124/73
== END 2018-05-03 19:19 | disposition home or self-care (01) ==
LOC: ER 15:10
DX: R11.2 Nausea with vomiting, unspecified (principal); R19.7 Diarrhea, unspecified; R51 Headache; R10.9 Unspecified abdominal pain; F17.200 Nicotine dependence, unspecified, uncomplicated
CPT/HCPCS: 99284; 36415; 83690; 85025; 80053; 81001; S0119